=== PATIENT | male | born 1975 | race Caucasian/White ===

== ENCOUNTER 2021-03-07 07:34 | Outpatient (CLI) | payer OTHER | END 2021-03-07 07:35 | disposition home or self-care (01) | LOC: NUCLEAR 07:34 | PROVIDERS: ATTEND Urology | DX: C61 Malignant neoplasm of prostate (principal) | CPT/HCPCS: 78816; A9552 ==

== ENCOUNTER 2021-03-13 08:09 | Outpatient (CLI) | payer OTHER | END 2021-03-13 08:10 | disposition home or self-care (01) | LOC: NUCLEAR 08:09 | PROVIDERS: ATTEND Urology | DX: C61 Malignant neoplasm of prostate (principal) | CPT/HCPCS: 78803; A9503 ==